=== PATIENT | female | born 1955 | race Caucasian/White ===

== ENCOUNTER 2023-08-31 08:11 | Inpatient (IN) | payer BC ==
[~2023-08-31] VITALS: Ht 165.1 cm; Wt 68.0 kg
[2023-08-31] MEDS ORDERED: BUPR150T5 PO (08:28)
[2023-08-31] MEDS ORDERED: CITA40TA22 PO (08:28)
[2023-08-31] MEDS ORDERED: ONDANSETRON 4 MG/2 ML VIAL ONE (08:43)
[2023-08-31] MEDS ORDERED: MORPHINE SULFATE 4 MG/1 ML DISP.SYRIN ONE (08:43)
[2023-08-31] MEDS ORDERED: ONDANSETRON 4 MG/2 ML VIAL IV ONE (08:45)
[2023-08-31] MEDS ORDERED: MORPHINE SULFATE 4 MG/1 ML DISP.SYRIN IV ONE (08:45)
[2023-08-31 09:01] LABS: BASOPHILS # (AUTO) 0.1 K/UL (0.0-0.2); BASOPHILS % (AUTO) 0.5 % (0.0-2.0); EOSINOPHILS % (AUTO) 0.2 % (0.0-7.0); HEMATOCRIT 39.2 % (31.2-41.9); HEMOGLOBIN 13.2 g/dL (10.9-14.3); LYMPHOCYTES % (AUTO) 15.4 % (20.5-51.5); MEAN CORPUSCULAR HEMOGLOBIN 30.9 uug (24.7-32.8); MEAN CORPUSCULAR HGB CONC 34 g/dL (32.3-35.6); MEAN CORPUSCULAR VOLUME 91.9 fL (75.5-95.3); MONOCYTES # (AUTO) 0.7 K/uL (0.1-1.30); MONOCYTES % (AUTO) 5.2 % (0.0-11.0); NEUTROPHILS # (AUTO) 10.4 K/uL (1.8-8.9); NEUTROPHILS % (AUTO) 78.7 % (38.5-71.5); PLATELET COUNT (AUTO) 201 K/uL (179-408); RED BLOOD CELL COUNT(AUTO) 4.27 MIL/uL (3.63-4.92); RED CELL DISTRIBUTION WIDTH 13.7 % (12.3-17.7); WHITE BLOOD COUNT (AUTO) 13.2 K/uL (3.8-11.8)
[2023-08-31 09:11] LABS: DIFFERENTIAL COMMENT 1
[2023-08-31 09:14] LABS: CALCIUM 9.8 mg/dL (8.5-10.1); CARBON DIOXIDE 24 mmol/L (21-32); CHLORIDE 103 mmol/L (98-107); CREATININE 0.9 mg/dL (0.6-1.3); GLUCOSE 168 mg/dL (74-106); POTASSIUM 3.6 mmol/L (3.5-5.1); SODIUM SERUM 138 mmol/L (136-145); UREA NITROGEN, BLOOD 21 mg/dL (7-18)
[2023-08-31] MEDS ORDERED: METRONIDAZOLE 500 MG/NS 100 ML PIGGYBACK IV ONE (09:15)
[2023-08-31] MEDS ORDERED: CEFTRIAXONE 1 G in IV DEXTROSE 5% 50 ML IV ONE (09:15)
[2023-08-31] MEDS ORDERED: CEFTRIAXONE /D5W 50ML IVPB **ER PYXIS IV ONE (09:16)
[2023-08-31] MEDS ORDERED: METRONIDAZOLE 500 MG/NS 100ML 100 ML IV ONE (09:18)
[2023-08-31 09:24] LABS: ALANINE AMINOTRANSFERASE 37 U/L (14-59); ALBUMIN 4.2 g/dL (3.4-5.0); ALKALINE PHOSPHATASE 65 U/L (50-136); ASPARTATE AMINOTRANSFERASE 23 U/L (15-37); BILIRUBIN,DIRECT 0.2 mg/dL (0.0-0.2); BILIRUBIN,TOTAL 0.5 mg/dL (0.2-1.0); LIPASE 44 U/L (16-77)
[2023-08-31] MEDS ORDERED: IV NORMAL SALINE 1000 ML BAG IV ONE (09:30)
[2023-08-31] MEDS ORDERED: IV NS 1000 ML 1,000 ML IV PRN (10:45)
[2023-08-31] MEDS ORDERED: ACETAMINOPHEN 325 MG TABLET PO PRN ×2 (10:45→23:00)
[2023-08-31] MEDS ORDERED: MORPHINE SULFATE 2 MG/1 ML DISP.SYRIN IV PRN (10:45)
[2023-08-31] MEDS ORDERED: ONDANSETRON 4 MG/2 ML VIAL IV PRN (10:45)
[2023-08-31] MEDS ORDERED: REMEDY ESSENTIAL ZINC PASTE 113 GM TP PRN (10:45)
[2023-08-31] MEDS ORDERED: PANTOPRAZOLE SODIUM 40 MG VIAL ONE (11:37)
[2023-08-31] MEDS: PANTOPRAZOLE SODIUM 40 MG VIAL IV SCH (11:42)
[2023-08-31 14:50] VITALS: BP 101/47; TEMP 99.1; O2SAT 97
[2023-08-31] MEDS ORDERED: ROSU40TA PO (15:09)
[2023-08-31] MEDS ORDERED: ZOLP5TAB8 PO (15:09)
[2023-08-31] MEDS ORDERED: ESTR10IN VG (15:10)
[2023-08-31] MEDS ORDERED: BUPR300T52 PO (15:17)
[2023-08-31] MEDS ORDERED: HOME MED MISCELLANEOUS XX SCH ×2 (15:30)
[2023-08-31 16:38] LABS: *BILIRUBIN,URIN NEGATIVE (NEGATIVE); *BLOOD, URINE NEGATIVE (NEGATIVE); *CLARITY,URINE CLEAR (CLEAR); *COLOR,URINE YELLOW (YELLOW); *KETONES,URINE TRACE (NEGATIVE); *PROTEIN,URINE TRACE (NEGATIVE); *UROBILINOGEN,URINE 0.2 E.U./dl (NORMAL); LEUKOCYTE ESTERASE ,URINE NEGATIVE (NEGATIVE); NITRITE, URINE NEGATIVE (NEGATIVE); PH,URINE 6.5 (5.0-8.0); UGLUCOSE NEGATIVE (NEGATIVE)
[2023-08-31] MEDS: METRONIDAZOLE 500 MG/NS 100ML 500 MG in PREMIXED 1 EACH IV SCH (16:53)
[2023-08-31] MEDS ORDERED: ROPIVACAINE HCL/PF 0.5% ( 5 MG/ML ) , 20 ML VIAL ONE (18:30)
[2023-08-31] MEDS ORDERED: LIDOCAINE 1%-EPI 1:100,000 20 ML VIAL ONE (18:30)
[2023-08-31] MEDS ORDERED: BUPIVACAINE PF 0.5% 30 ML VIAL ONE (18:31)
[2023-08-31] MEDS ORDERED: FENTANYL CITRATE 100 MCG/2 ML AMPUL ONE (19:09)
[2023-08-31] MEDS ORDERED: MIDAZOLAM HCL 2 MG/2 ML VIAL ONE (19:09)
[2023-08-31] MEDS ORDERED: CLINDAMYCIN 600 MG PIGGYBACK**ER OMNI IV ONE (19:10)
[2023-08-31] MEDS ORDERED: ROCURONIUM BROMIDE 50 MG/5 ML VIAL ONE (19:10)
[2023-08-31] MEDS ORDERED: FAMOTIDINE. 20 MG/2 ML VIAL IV ONE (19:10)
[2023-08-31] MEDS ORDERED: LIDOCAINE 2% (GLYDO= UROJET) 10 ML JELLY MM ONE (19:19)
[2023-08-31] MEDS ORDERED: LIDOCAINE HCL 2% 5 ML JELLY ONE (19:20)
[2023-08-31] MEDS ORDERED: ZOLPIDEM 5 MG TABLET PO PRN (21:00)
[2023-08-31] MEDS ORDERED: methylPREDNISolone SOD SUCC 125 MG/2 ML VIAL ONE (21:04)
[2023-08-31] MEDS ORDERED: SUCCINYLCHOLINE CHLORIDE 200 MG/10 ML VIAL ONE (21:06)
[2023-08-31] MEDS ORDERED: MEPERIDINE 25 MG/1 ML DISP.SYRIN ONE (21:15)
[2023-08-31] MEDS ORDERED: HYDROMORPHONE 1 MG/1 ML DISP.SYRIN IV PRN (23:00)
[2023-08-31 23:05] VITALS: BP 99/50; TEMP 98; O2SAT 95
[2023-08-31] MEDS: IV LACTATED RINGERS SOLUTION 1,000 ML IV SCH (23:22)
[2023-08-31] MEDS: CELECOXIB 200 MG CAPSULE PO SCH (23:31)
[2023-08-31] MEDS: GABAPENTIN 100 MG CAPSULE PO SCH (23:31)
[2023-09-01] MEDS: METRONIDAZOLE 500 MG/NS 100ML 500 MG in PREMIXED 1 EACH IV SCH ×2 (00:36→08:31)
[2023-09-01 04:00] VITALS: BP 98/56; TEMP 98.1
[2023-09-01] MEDS ORDERED: ACETAMINOPHEN 325 MG TABLET PO SCH (06:00)
[2023-09-01] MEDS: GABAPENTIN 100 MG CAPSULE PO SCH (06:27)
[2023-09-01] MEDS: IV LACTATED RINGERS SOLUTION 1,000 ML IV SCH (06:30)
[2023-09-01 07:15] LABS: BASOPHILS % (AUTO) 0.1 % (0.0-2.0); HEMATOCRIT 32.5 % (31.2-41.9); HEMOGLOBIN 11.1 g/dL (10.9-14.3); LYMPHOCYTES # (AUTO) 0.7 K/uL (0.8-4.8); LYMPHOCYTES % (AUTO) 9.4 % (20.5-51.5); MEAN CORPUSCULAR HEMOGLOBIN 31.7 uug (24.7-32.8); MEAN CORPUSCULAR HGB CONC 34 g/dL (32.3-35.6); MONOCYTES # (AUTO) 0.2 K/uL (0.1-1.30); MONOCYTES % (AUTO) 2.1 % (0.0-11.0); NEUTROPHILS # (AUTO) 6.9 K/uL (1.8-8.9); NEUTROPHILS % (AUTO) 88.4 % (38.5-71.5); PLATELET COUNT (AUTO) 156 K/uL (179-408); RED CELL DISTRIBUTION WIDTH 13.9 % (12.3-17.7); WHITE BLOOD COUNT (AUTO) 7.8 K/uL (3.8-11.8)
[2023-09-01 07:26] LABS: CALCIUM 8.3 mg/dL (8.5-10.1); CREATININE 0.8 mg/dL (0.6-1.3); MAGNESIUM 1.8 mg/dL (1.8-2.4); PHOSPHOROUS 4.4 mg/dL (2.5-4.9); POTASSIUM 4.1 mmol/L (3.5-5.1)
[2023-09-01 07:46] LABS: DIFFERENTIAL COMMENT 1
[2023-09-01 07:59] VITALS: BP 90/42; TEMP 98.2; O2SAT 92
[2023-09-01] MEDS: PANTOPRAZOLE SODIUM 40 MG VIAL IV SCH (08:12)
[2023-09-01] MEDS ORDERED: CITALOPRAM 20 MG TABLET PO SCH (09:00)
[2023-09-01] MEDS ORDERED: buPROPion XL 150 MG TAB.SR.24H PO SCH (09:00)
[2023-09-01] MEDS ORDERED: CEFTRIAXONE 1 G in IV DEXTROSE 5% 50 ML IV SCH (09:00)
[2023-09-01] MEDS: CELECOXIB 200 MG CAPSULE PO SCH (09:37)
[2023-09-01 09:38] LABS: THYROID STIMULATING HORMONE 0.763 mIU/mL (0.358-3.740)
[2023-09-01] MEDS ORDERED: HYDR-3972 PO (11:15)
[2023-09-01] MEDS ORDERED: GABA100C PO (11:15)
[2023-09-01] MEDS ORDERED: CELE200C PO (11:15)
[2023-09-01] MEDS ORDERED: ACET-2154 PO (11:15)
== END 2023-09-01 11:30 | disposition home or self-care (01) | DRG 399 ==
LOC: ER 08:14 → MEDSURG3 13:49
PROVIDERS: ADMIT Nurse Practitioner Acute Care; ATTEND Nurse Practitioner Acute Care
PROC: 0DTJ4ZZ Resection of Appendix, Percutaneous Endoscopic Approach (ICD-10-PCS; principal; 2023-08-31)
DX: K35.80 Unspecified acute appendicitis (principal); E78.5 Hyperlipidemia, unspecified; F32.A Depression, unspecified; R79.89 Other specified abnormal findings of blood chemistry; R94.31 Abnormal electrocardiogram [ECG] [EKG]; Z88.0 Allergy status to penicillin; Z79.899 Other long term (current) drug therapy; Z88.2 Allergy status to sulfonamides; F41.9 Anxiety disorder, unspecified
CPT/HCPCS: 36415; 71045; 83690; 83735; 84100; 84443; 84484; 85025; 85610; 85730; 93005; 93307; A4606; A4663; C9113; G0378; J0330; J0696; J2175; J2250; J2270; J2405; J2795; J2930; J3010; J3490; J7040; J7120

== ENCOUNTER 2023-09-16 06:12 | Emergency (ER) | payer BC ==
[~2023-09-16] VITALS: Ht 165.1 cm; Wt 68.0 kg
[~2023-09-16 06:12] MED LIST: ACET-2154 PO; BUPR300T52 PO; CELE200C PO; CITA40TA22 PO; ESTR10IN VG; GABA100C PO; HYDR-3972 PO; ROSU40TA PO; ZOLP5TAB8 PO
[2023-09-16] MEDS ORDERED: IOHEXOL 300MG/ML 100 ML INFUS..BTL ONE (07:16)
[2023-09-16] MEDS ORDERED: SWABABLE VALVE TRANSFER SET EA MC ONE (07:16)
[2023-09-16] MEDS ORDERED: IV NORMAL SALINE 250 ML IV ONE (07:16)
[2023-09-16 07:21] LABS: BASOPHILS % (AUTO) 0.6 % (0.0-2.0); EOSINOPHILS # (AUTO) 0.1 K/uL (0.0-0.7); EOSINOPHILS % (AUTO) 1.2 % (0.0-7.0); HEMATOCRIT 36.1 % (31.2-41.9); HEMOGLOBIN 12.5 g/dL (10.9-14.3); LYMPHOCYTES # (AUTO) 1.9 K/uL (0.8-4.8); MEAN CORPUSCULAR HEMOGLOBIN 31.6 uug (24.7-32.8); MEAN CORPUSCULAR HGB CONC 35 g/dL (32.3-35.6); MEAN CORPUSCULAR VOLUME 91.5 fL (75.5-95.3); MONOCYTES # (AUTO) 0.6 K/uL (0.1-1.30); MONOCYTES % (AUTO) 7.9 % (0.0-11.0); NEUTROPHILS # (AUTO) 4.6 K/uL (1.8-8.9); NEUTROPHILS % (AUTO) 64.3 % (38.5-71.5); PLATELET COUNT (AUTO) 217 K/uL (179-408); RED BLOOD CELL COUNT(AUTO) 3.95 MIL/uL (3.63-4.92); RED CELL DISTRIBUTION WIDTH 13.7 % (12.3-17.7); WHITE BLOOD COUNT (AUTO) 7.2 K/uL (3.8-11.8)
[2023-09-16 07:26] LABS: DIFFERENTIAL COMMENT 1
[2023-09-16 07:29] LABS: CALCIUM 9.2 mg/dL (8.5-10.1); CREATININE 0.9 mg/dL (0.6-1.3); POTASSIUM 4.1 mmol/L (3.5-5.1)
[2023-09-16 07:35] LABS: ALBUMIN 3.7 g/dL (3.4-5.0); BILIRUBIN,TOTAL 0.4 mg/dL (0.2-1.0); TOTAL PROTEIN, SERUM 7.5 g/dL (6.4-8.2)
[2023-09-16 07:37] LABS: *BILIRUBIN,URIN NEGATIVE (NEGATIVE); *BLOOD, URINE NEGATIVE (NEGATIVE); *CLARITY,URINE CLEAR (CLEAR); *COLOR,URINE YELLOW (YELLOW); *KETONES,URINE NEGATIVE (NEGATIVE); *PROTEIN,URINE NEGATIVE (NEGATIVE); *UROBILINOGEN,URINE 0.2 E.U./dl (NORMAL); LEUKOCYTE ESTERASE ,URINE NEGATIVE (NEGATIVE); NITRITE, URINE NEGATIVE (NEGATIVE); PH,URINE 5.5 (5.0-8.0); UGLUCOSE NEGATIVE (NEGATIVE)
[2023-09-16 08:40] VITALS: O2SAT 98
== END 2023-09-16 09:21 | disposition home or self-care (01) ==
LOC: ER 06:16
DX: R10.33 Periumbilical pain (principal); E78.5 Hyperlipidemia, unspecified; F32.A Depression, unspecified; Z79.899 Other long term (current) drug therapy; Z88.0 Allergy status to penicillin; Z88.2 Allergy status to sulfonamides
CPT/HCPCS: 99285; 74177; 80053; 81003; 83690; 85025; 36415; Q9967; A4606; A4663